=== PATIENT | female | born 1950 | race Caucasian/White ===

== ENCOUNTER 2016-08-28 09:56 | Inpatient (IN) | payer MEDICARE, SELFPAY ==
--- NOTE | ~2016-08-28 | OP ---
Record Of Operation [facility] [address] [place]. [address] NAME: ELIE PORTER : 54 STATUS : ADM IN [facility]#: [id number] AGE: 66 ADM/REG DATE : 08/28/16 MR#: [id number] REPORT SERV DATE: 08/29/16 DICTATED BY: KEANU HAUSER DATE: 08/28/16 REPORT STATUS : Draft TRANSCRIBED BY: MODAlla DATE: 08/28/16 DATE OF PROCEDURE: 08/28/2016 PREOPERATIVE DIAGNOSIS: Right hip degenerative joint disease. POSTOPERATIVE DIAGNOSIS: Right hip degenerative joint disease. PROCEDURE: Uncemented total hip arthroplasty, Tri-Lock. SIDE: Right side. 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 ANESTHESIA: See chart. SIZE: See chart. ESTIMATED BLOOD LOSS: 100 mL. INDICATIONS FOR SURGERY: DESCRIPTION OF PROCEDURE: The patient was taken to the operating room and placed supine on the table without incident. Anesthetic was induced per the anesthesiologist. A Perez catheter was placed by the nurse in the standard sterile technique. The correct side for the procedure was identified by preoperative markings and matched with the consent form. All personnel in the room were in agreement regarding the procedure, patient, and side. The patient was then carefully positioned and carefully padded and prepped and draped in the normal sterile fashion. The patient received prophylactic preoperative antibiotics at the appropriate time. The preoperative x-ray was brought up on the monitor. Again, this was reviewed with the staff in the room. According with the preoperative plan, and angled, an anterolateral incision was made centered over the trochanter extending from proximal posterior to distal anterior. Electrocautery was used to maintain meticulous hemostasis. The IT band was split in line with its fibers. A Charnley retractor was placed over saline moistened laps. A standard anterolateral approach to the hip was carried out dissecting in line with the vastus medialis fibers lifting the inferior 20% of the vastus medialis, proximally the interior 20% of the gluteus medius and gluteus minimus tendons off the anterior capsule. Periosteal elevator was used to elevate soft tissue gently directly off the proximal anterior femoral bone. Appropriate retractors were carefully placed. Complete anterior capsulectomy was performed. The hip was then carefully dislocated with a combination of traction maneuver by the teachers assistant and scooping the ball out of the socket with a Hohmann. A femoral neck osteotomy was marked according to what had been preoperatively planned with a broach as a template. The distance for the femoral neck osteotomy was measured with a ruler. A femoral neck osteotomy was made with an oscillating saw under appropriate retraction. Meticulous hemostasis was again obtained. The leg was then brought up out of the anterior bag and Record Of Operation [address] [place]. [address] NAME: ELIE PORTER : 54 STATUS : ADM IN [facility]#: [id number] AGE: 66 ADM/REG DATE : 08/28/16 MR#: [id number] REPORT SERV DATE: 08/29/16 DICTATED BY: KEANU HAUSER DATE: 08/28/16 REPORT STATUS : Draft TRANSCRIBED BY: TOBIAS DATE: 08/28/16 positioned with the lower extremity in external rotation and slight flexion. Acetabular retractors were placed carefully palpating to be sure that they were directly on the bone. The acetabular labrum was excised with electrocautery and rongeur. Pulvinar fat was removed with a large curette and rongeur and again meticulous hemostasis was obtained. Sequential reamers were used in the acetabulum to 1 mm. less than the final size which was chosen. This was felt to give excellent interference fit. The acetabular fossa was then copiously irrigated with pulsatile lavage and actual acetabular component was placed and impacted and checked to make sure it was down snug. The overall alignment was checked. The acetabular manager car was then removed. Screws were placed in the standard fashion. A drill, depth gauge and self tapping screw placement taking care not to plunge as the drill holes were carefully placed. A trial liner was then placed and attention directed back to the proximal femur. The leg was placed back into the anterior bag. The proximal femur was prepared using a box chisel following by a T-handled reamer to determine the intramedullary alignment. This was followed by sequential broaches up to the final broach. Once it was seated in the appropriate position, a Calcar reamer was used to plane the proximal femur. Trial reduction was then done with a trial prosthetic ball and neck. A straight edge was used to compare the tip of the trochanter to center of the ball relationship to what had been noted on the preoperative x-ray. Careful reduction was then done of the total hip. Palpation was done to ascertain and compare leg lengths by palpating the nonoperative leg and also by checking soft tissue tension. The stability of the hip was checked in full extension with full external rotation and in full flexion with adduction, flexion and internal rotation. The hip was then redislocated with a bone hook. The femoral trial and femoral broach were removed. The acetabulum was then prepared under appropriate retraction by removing the trial liner. A central hole eliminator was placed and tightened. The shell was irrigated out. The actual insert was placed and impacted and then checked to be sure it was down snug with a joker. The leg was again positioned in the bag. The proximal femur exposed, irrigated and the actual thermal prosthesis was taken from the sales representative publications and impacted. Once it was down, the trunnion was cleansed with a wet and dry lap and the prosthetic thermal head was placed and impacted and checked to be sure it was down snug. The acetabulum was irrigated and reduction was obtained. Again, we checked soft tissue tension, leg length and stability as described above. The hip was closed in a layered fashion with a 5 mm. Mersilene tape placed through a single drill hole in the proximal anterior/superior trochanter reattaching the gluteus medius and minimus fibers. The vastus lateralis, gluteus medius, and gluteus minimus were then closed in a sleeve. Drain was placed between the vastus and the IT band exiting distally anteriorly. The IT band was closed. Subcutaneous closure and skin closure were then obtained. A sterile dressing was applied. The patient was carefully positioned into a supine position and then awakened. The patient was then carefully transferred to the stretcher to be returned to the postoperative care unit without incident. COMPLICATION: None. SPECIMENS: Right femoral head. Record Of Operation [address] [place]. [address] NAME: ELIE PORTER : 54 STATUS : ADM IN [facility]#: [id number] AGE: 66 ADM/REG DATE : 08/28/16 MR#: [id number] REPORT SERV DATE: 08/29/16 DICTATED BY: KEANU HAUSER DATE: 08/28/16 REPORT STATUS : Draft TRANSCRIBED BY: MODAlla DATE: 08/28/16 WTB/MODL Ana Hauser M.D. / [id number] CC: Ana Hauser M.D.
[~2016-08-28 09:56] MED LIST: ABILIFY20 MG PO; ACET500CAP PO; ACIDOPHILU1 PO; ADVAIR250 INH; ALEVE220 MG PO; ATIVAN2 MG PO; CELEXA40 MG PO; COREG6 PO; COZ25 PO; FL250 PO; FLONASE NAS; FLORASTOR250 MG PO; FLOVENT DISK50 MCG INH; HYDROCHLOROT25 MG PO; HYDROCODONE PO; KADIANSR30 PO; L-LYSINE500 M1 OR; LEVAQUIN750 MG PO; LEVOTHYROXIN125 MCG PO; LEVOTHYROXIN175 MCG PO; LEVOTHYROXIN75 MCG PO; LUNESTA3 MG PO; MACRODANTIN 10100 MG PO; MAGONATE PO; NORCO1 TA2 PO; NORV25 PO; PR12.5 PO; PROAIR HFA INH; SINGULAIR1 PO; SYN125 PO; TRAZ100 PO; ULTRAM50 PO; VYTORIN 10/80 T1 TAB PO; ZANTAC150 MG PO; [UNRECOGNIZED DRUG - OTHER] PO; [UNRECOGNIZED DRUG - OTHER] TOP
[2016-08-29 08:18] LABS: INTERNATIONAL NORMAL RATI 1.1 UNITS (-); PROTIME (NOT ORD) 13.7 SEC (12.0-14.5)
[2016-08-29 08:19] LABS: HEMATOCRIT 34.8 % (36.0-48.0); HEMOGLOBIN 11.1 g/dL (12.0-16.0)
[2016-08-29 08:23] LABS: BUN (BLOOD UREA NITROGEN) 13 MG/DL (6-23); CALCIUM, SERUM 8.6 MG/DL (8.5-10.4); CHLORIDE, SERUM 107 MMOL/L (96-112); CO2 (CARBON DIOXIDE) 30 MMOL/L (24-34); CREATININE 0.75 MG/DL (0.55-1.02); GFR AFRICAN AMERICAN 98 ML/MIN (>=60); GFR NON AFRICAN AMERICAN 84 ML/MIN (>=60); GLUCOSE, SERUM 117 MG/DL (60-99); POTASSIUM, SERUM 4.2 MMOL/L (3.5-5.3); SODIUM, SERUM 141 MMOL/L (135-148)
[2016-08-30 06:10] LABS: HEMATOCRIT 31.8 % (36.0-48.0); HEMOGLOBIN 10.5 g/dL (12.0-16.0)
[2016-08-30 06:20] LABS: INTERNATIONAL NORMAL RATI 1.7 UNITS (-)
[2016-08-30 06:21] LABS: PROTIME (NOT ORD) 20.1 SEC (12.0-14.5)
== END 2016-08-30 20:07 | DRG 470 ==
LOC: SDC/OF 09:56 → PACU 14:09 → 3SO 16:09
PROVIDERS: Specialist
PROC: 0SR902A Replacement of Right Hip Joint with Metal on Polyethylene Synthetic Substitute, Uncemented, Open Approach (ICD-10-PCS; principal; 2016-08-28 11:30)
DX: M16.11 Unilateral primary osteoarthritis, right hip (principal); I10 Essential (primary) hypertension; J20.9 Acute bronchitis, unspecified; E03.9 Hypothyroidism, unspecified; F31.9 Bipolar disorder, unspecified
CPT/HCPCS: 36415; 72170; 80048; 80053; 81001; 85014; 85018; 85025; 85610; 86850; 86900; 86901; 87077; 87086; 87186; 88304; 88311; 97110-GP; 97116-GP; 97161-GP; 97165-GO; 97535-GO; A9270-GY; C1713; C1776; J0690; J1170; J1580; J1885; J2250; J2270; J2274; J2370; J2405; J2795; J3010